=== PATIENT | male | born 1970 | race Caucasian/White ===

== ENCOUNTER 2020-01-11 21:33 | Observation (INO) | payer BC, MEDICARE, SELFPAY ==
[2020-01-11 21:46] VITALS: BP 126/69; PULSE 91; RESP 16; TEMP 36.8; O2SAT 95; BMI 35.1
--- NOTE | 2020-01-11 21:51 | ECG_ITS ---
APPROVED REPORT Exam: Resting ECG HR:94 bpm ECG Measurements Heart Rate 94 AXES WV 132 P 19 QRSd 102 QRS 7 QT 338 T 21 QTc 422 <Conclusion> Normal sinus rhythm Normal ECG Electronically signed by : Emre Pearl, 01/15/2020 08:11:02
[2020-01-11 22:00] VITALS: BP 112/54; PULSE 88; RESP 16; O2SAT 93
[2020-01-11 22:06] LABS: POC Glucose,Bedside 134 (70-110)
[2020-01-11 22:17] LABS: Chloride 97 mmol/L (98-107); Potassium 4.2 mmoL/L (3.5-5.1); Sodium 135 mmol/L (136-145)
[2020-01-11 22:19] LABS: Alanine Aminotransferase 22 U/L (12-78); Aspartate Amino Transferase 20 U/L (17-59); Blood Urea Nitrogen 35 mg/dl (9-20); Creatinine Clearance Estimated 32 mL/min (50-200); Estimated Glomerular Filt Rate 14 ml/min (>60); GFR (African American) 17 ML/MIN (>60)
[2020-01-11 22:20] LABS: Albumin/Globulin Ratio 1.4 (1.1-1.8); Alkaline Phosphatase 61 U/L (38-126); Anion Gap 17.2 mEq/L (5-15); Bilirubin,Total 0.5 mg/dl (0.2-1.3); Calcium 9.4 mg/dl (8.4-10.2); Carbon Dioxide 25 mmol/L (22.0-30.0); Globulin 2.9 g/dL (1.3-3.2); Glucose 139 mg/dl (74-100); Total Protein,Serum 6.9 g/dl (6.3-8.2)
[2020-01-11 22:22] LABS: Basophils # 0.1 K/mm3 (0-0.2); Basophils % 0.2 % (0.1-2.0); Eosinophils % 0.2 % (0.1-12.0); Hematocrit 42.8 % (42.0-52.0); Hemoglobin 14.1 g/dL (14.1-18.0); Lymphocytes # 2.9 K/mm3 (0.7-4.5); Lymphocytes % 12.6 % (10-50); Mean Corpuscular HGB Conc 33.1 g/dL (31.8-35.4); Mean Corpuscular Hemoglobin 29.7 pg (27.0-31.2); Mean Corpuscular Volume 89.9 fl (80-94); Mean Platelet Volume 7.5 fl (7.4-10.4); Monocytes # 0.8 K/mm3 (0.1-1.0); Monocytes % 3.7 % (1.7-9.3); Neutrophils # 19.1 K/mm3 (1.8-7.8); Neutrophils % 83.3 % (37.0-80.0); Platelet Count 319 K/mm3 (142-424); Red Blood Count 4.76 M/mm3 (4.60-6.20); Red Cell Distribution Width 13.2 % (11.5-17.5); White Blood Count 22.9 K/mm3 (4.8-10.8)
--- NOTE | 2020-01-11 22:26 | CT_ITS ---
PROCEDURE: CT HEAD/BRAIN WO CON CLINICAL INDICATION: weakness Walking difficulty, weakness, uncontrollable motion of arms and legs with weakness COMPARISON: No exams were available for comparison TECHNIQUE: Axial images obtained. All CT scans at the facility use one or more dose reduction, viz: automated exposure control, ma/kV adjustment per patient size (including targeted exams where dose is matched to indication, i.e. head), or iterative reconstruction technique. FINDINGS: No midline shift, mass effect, intracranial hemorrhage, hydrocephalus, or extra-axial fluid collection is evident.. The calvarium has an unremarkable appearance. No mastoid effusion. Mild mucosal thickening ethmoid sinuses and left maxillary sinus with possible small retention cyst in the left maxillary sinus. IMPRESSION: No acute intracranial finding Dictated by: Adeel Rodas MD 01/12/2020 06:28 Electronically signed by Adeel Rodas MD in [place] 01/12/2020 06:28
[2020-01-11 22:30] VITALS: BP 116/57; PULSE 90; RESP 16; O2SAT 94
[2020-01-11 22:53] LABS: Acetaminophen < 10 ug/ml (10-30); Salicylate < 1.0 mg/dL (2.0-20.0)
[2020-01-11 22:54] LABS: MANUAL DIFFERENTIAL MANUAL DIFFERENTIAL (MANUAL DIFF)
[2020-01-11 23:00] VITALS: BP 117/71; PULSE 96; RESP 16; O2SAT 98
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
--- NOTE | 2020-01-11 23:02 | HMH.EDAMS ---
ED Disposition Clinical Impression: Acute delirium, Obesity (BMI 30-39.9) Renal failure, acute Qualifiers: Acute renal failure type: unspecified Qualified Code(s): N17.9 - Acute kidney failure, unspecified Leukocytosis (leucocytosis) Qualifiers: Leukocytosis type: unspecified Qualified Code(s): D72.829 - Elevated white blood cell count, unspecified Disposition: Admitted as Observation Condition on Discharge: Good - Critical Care Critical Care Time: No Attestation: On 01/11/20, the high probability of a clinically significant, sudden or life threatening deterioration of the following system(s) required my full and direct attention, intervention and personal management. The time I documented below is in addition to time spent performing reported procedures but includes the following listed in this critical care notation. Medical Decision Making - Medical Records Medical records reviewed: Yes: I reviewed the patient's medical records. - Conrad Inquiry Pt receiving controlled substance: No Vital Signs: 01/11/20 21:46 01/11/20 22:00 01/11/20 22:30 Temperature 98.3 F Temperature Source Oral Pulse Rate [Right Brachial] 91 H 88 90 Respiratory Rate 16 16 16 Blood Pressure [Right Arm] 126/69 112/54 L 116/57 L Blood Pressure Mean [Right Arm] 88 73 76 Blood Pressure Source [Right Arm] Automatic Cuff Automatic Cuff Automatic Cuff Blood Pressure Position [Right Arm] Sitting Supine Supine 02 Sat by Pulse Oximetry 95 93 L 94 L Oxygen Delivery Method Room Air Room Air Room Air 01/11/20 23:00 Temperature Temperature Source Pulse Rate [Right Brachial] 96 H Respiratory Rate 16 Blood Pressure [Right Arm] 117/71 Blood Pressure Mean [Right Arm] 86 Blood Pressure Source [Right Arm] Automatic Cuff Blood Pressure Position [Right Arm] Sitting 02 Sat by Pulse Oximetry 98 Oxygen Delivery Method Room Air - Lab Data Lab results reviewed: Yes: I reviewed the patient's lab results. Lab Results 01/11/20 21:48: POC Glucose 134 H 01/11/20 22:00: WBC 22.9 H*, RBC 4.76, Hgb 14.1, Hct 42.8, MCV 89.9, MCH 29.7, MCHC 33.1, RDW 13.2, Plt Count 319, MPV 7.5, Neut % (Auto) 83.3 H, Lymph % (Auto) 12.6, [place] % (Auto) 3.7, Eos % (Auto) 0.2, Baso % (Auto) 0.2, Neut # (Auto) 19.1 H, Lymph # (Auto) 2.9, [place] # (Auto) 0.8, Eos # (Auto) 0.0, Baso # (Auto) 0.1, Total Counted 100, Neutrophils % (Manual) 81 H, Lymphocytes % (Manual) 15, Monocytes % (Manual) 4, Platelet Estimate Normal, RBC Morphology Normal 01/11/20 22:00: Sodium 135 L, Potassium 4.2, Chloride 97 L, Carbon Dioxide 25, Anion Gap 17.2 H, BUN 35 H, Creatinine 4.40 H, Estimated Creat Clear 32, Estimated GFR 14 L*, Est GFR ( Amer) 17 L*, Glucose 139 H, Calcium 9.4, Total Bilirubin 0.5, AST 20, ALT 22, Alkaline Phosphatase 61, Total Protein 6.9, Albumin 4.0, Globulin 2.9, Albumin/Globulin Ratio 1.4, Salicylates < 1.0 L, Acetaminophen < 10 L 01/11/20 22:00: Plasma/Serum Alcohol < 10 01/11/20 22:00: C-Reactive Protein 123.1 H Result diagrams: 01/11/20 22:00 01/11/20 22:00 Orders (Tests/Meds): ED MEDICATIONS Generic Name Dose Route Start Last Admin Trade Name Freq PRN Reason Stop Dose Admin Sodium Chloride 1,000 mls @ 999 mls/hr 01/11/20 23:00 01/11/20 23:00 Sod Chlor 0.9% 1000ml Bag IV 01/12/20 00:00 999 mls/hr .Q1H1M NOL[place] Administration Sodium Chloride 1,000 mls @ 999 mls/hr 01/11/20 22:00 Sod Chlor 0.9% 1000ml Bag IV 01/11/20 23:00 .Q1H1M NOL[place] Discontinued Medications Generic Name Dose Route Start Last Admin Trade Name Freq PRN Reason Stop Dose Admin Oxycodone/Acetaminophen 1 each 01/11/20 23:45 Percocet 7.5/325mg Tablet PO 01/11/20 23:46 ONCE ONE ORDERS Category Date Time Status CT head/brain wo con Stat Cat Scan 01/11/20 22:26 Taken Drug Screen,Urine Stat Lab 01/11/20 22:04 Ordered Erythrocyte Sedimentation Rate Stat Lab 01/11/20 22:00 Received Lactic Acid Stat Lab 01/11/20 23:36 Ordered Urinalysis and Micro
[2020-01-11 23:13] LABS: Lymphocytes % 15 % (10-50); Monocytes % 4 % (2-9); Neutrophils % 81 % (42-76); Total Cells Counted 100
[2020-01-11 23:14] LABS: Platelet Estimate Normal; RBC Morphology Normal
--- NOTE | 2020-01-11 23:15 | PC.NURSE ---
Page out for Dr. Govea at this time
--- NOTE | 2020-01-11 23:23 | PC.NURSE ---
ON PHONE WITH DR MAN
[2020-01-11 23:32] LABS: Ethyl Alcohol < 10 mg/dl (0-10)
--- NOTE | 2020-01-11 23:37 | PC.NURSE ---
NOW AT BEDSIDE
[2020-01-11 23:40] LABS: C-Reactive Protein 123.1 mg/L (0-4)
--- NOTE | 2020-01-11 23:50 | PC.NURSE ---
PT WITH AT BEDSIDE. DISCUSSED CARE AND PLAN OF CARE WITH DR MCCARTY. UNDERSTANDS NO GABAPENTIN TONIGHT. UNDERSTANDS RENAL FUNCTION SHOULD IMPROVE WITH HYDRATION AND NO GABAPENTIN. PATIENT CONTINUES TO MAKE THE STATEMENT I'LL JUST LEAVE TO ANYTHING THAT HE DEEMS NOT GETTING A SATISFACTORY ANSWER. REMINDING PATIENT THAT THIS IS A SERIOUS MATTER DOESN'T SEEM TO BE GETTING THROUGH. WILL ADVISE RECEIVING NURSE.
[2020-01-12 00:01] LABS: Erythrocyte Sedimentation Rate 39 mm/hr (0-20)
[2020-01-12 00:04] VITALS: BP 117/73; PULSE 93; RESP 16; TEMP 36.8; O2SAT 96
[2020-01-12 00:19] LABS: Lactic Acid 0.8 mmol/L (0.7-2.1)
--- NOTE | 2020-01-12 00:20 | PC.NURSE ---
patient up to floor via wheelchair.
[2020-01-12 00:39] VITALS: BP 144/84; PULSE 92; RESP 20; TEMP 36.9; O2SAT 92; BMI 36.3
[2020-01-12 04:00] VITALS: BP 162/88; PULSE 105; RESP 20; TEMP 37.3; O2SAT 93
[2020-01-12 04:47] LABS: Microscopic, Urine URINE MICROSCOPIC (MICROSCOPIC)
[2020-01-12 04:50] LABS: Appearance,Urine CLEAR (Clear); Bilirubin,Urine Negative (Negative); Blood, Urine 1+ (Negative); Color,Urine YELLOW (Yellow); Glucose,Urine (UA) Negative (Negative); Ketones,Urine Negative (Negative); Leukocyte Esterase,Urine TRACE (Negative); Nitrate,Urine POSITIVE (Negative); Protein,Urine 1+ (Negative); Specific Gravity, Urine >= 1.030 (1.005-1.030); Urobilinogen,Urine 0.2 EU/dl (0.2)
[2020-01-12 04:53] VITALS: BMI 36.4
[2020-01-12 05:02] LABS: Barbiturates Screen,Urine Negative ng/ml (<200)
[2020-01-12 05:03] LABS: Amphetamine/Metha Screen,Urine Negative ng/ml (<1000); Benzodiazepines Screen,Urine Negative ng/ml (<200)
[2020-01-12 05:04] LABS: Methadone Screen,Urine Negative ng/ml (<300)
[2020-01-12 05:05] LABS: Cannabinoid Screen,Urine Negative ng/ml (<50); Cocaine Screen,Urine Negative ng/ml (<300); WBC,Urine Occasional #/hpf (0-3)
[2020-01-12 05:06] LABS: Bacteria,Urine Trace /lpf; Opiate Screen,Urine Negative ng/ml (<300)
[2020-01-12 05:07] LABS: Phencyclidine Screen,Urine Negative ng/ml (<25)
--- NOTE | 2020-01-12 05:56 | PC.NURSE ---
PT A&OX4. TOLERATING RA WELL THIS SHIFT. PT HAS BEEN EXTREMELY ANXIOUS AND AGITATED T/O SHIFT. PT HAS C/O PAIN AND MUSCLE SPASMS T/O SHIFT. PT FAMILY HAS REMAINED AT BEDSIDE. PT STATED THAT IF HE WAS NOT ABLE TO GET HIS MEDICATIONS FROM THE MD, HE WOULD JUST HAVE HIS FAMILY BRING THEM IN TO HIM. THIS NURSE EXPLAINED OUR POLICIES TO THE PT. PT FAMILY CONTINUED TO GO IN AND OUT OF ROOM. PT CONTINUED BEING ANXIOUS AND C/O PAIN T/O NIGHT. PT NOW AT BEDSIDE. PT ABLE TO WALK INDEPENDENTLY TO . VSS WILL CONTINUE TO MONITOR.
[2020-01-12 07:06] LABS: Basophils % 0.2 % (0.1-2.0); Eosinophils # 0.1 K/mm3 (0.0-0.4); Eosinophils % 0.3 % (0.1-12.0); Hematocrit 38.7 % (42.0-52.0); Lymphocytes # 1.6 K/mm3 (0.7-4.5); Lymphocytes % 9.6 % (10-50); Mean Corpuscular HGB Conc 33.7 g/dL (31.8-35.4); Mean Corpuscular Hemoglobin 30.4 pg (27.0-31.2); Mean Corpuscular Volume 90.5 fl (80-94); Mean Platelet Volume 7.5 fl (7.4-10.4); Monocytes # 0.4 K/mm3 (0.1-1.0); Monocytes % 2.2 % (1.7-9.3); Neutrophils # 14.7 K/mm3 (1.8-7.8); Neutrophils % 87.6 % (37.0-80.0); Platelet Count 252 K/mm3 (142-424); Red Blood Count 4.28 M/mm3 (4.60-6.20); Red Cell Distribution Width 13.1 % (11.5-17.5); White Blood Count 16.8 K/mm3 (4.8-10.8)
[2020-01-12 07:16] LABS: Chloride 99 mmol/L (98-107); Sodium 132 mmol/L (136-145)
[2020-01-12 07:17] LABS: MANUAL DIFFERENTIAL MANUAL DIFFERENTIAL (MANUAL DIFF); Potassium 3.6 mmoL/L (3.5-5.1)
[2020-01-12 07:19] LABS: Blood Urea Nitrogen 29 mg/dl (9-20); Creatinine Clearance Estimated 77 mL/min (50-200); Estimated Glomerular Filt Rate 38 ml/min (>60); GFR (African American) 45 ML/MIN (>60)
[2020-01-12 07:20] LABS: Anion Gap 12.6 mEq/L (5-15); Calcium 8.9 mg/dl (8.4-10.2); Carbon Dioxide 24 mmol/L (22.0-30.0); Glucose 198 mg/dl (74-100); Magnesium 1.7 mg/dl (1.6-2.3)
--- NOTE | 2020-01-12 07:31 | P.CONPHA_ITS ---
[facility] Pharmacy VTE Monitoring - Patient Demographics Admission date: 01/12/20 Report Date: 01/12/20 Time: 07:31 Allergies/Adverse Reactions: Patient Allergies No Known Allergies Allergy (Verified 01/11/20 21:52) Height: 1.8 m Weight: 118.047 kg Patient Problems: Current Active Problems Acute delirium (Acute) Renal failure, acute (Acute) Obesity (BMI 30-39.9) (Acute) Leukocytosis (leucocytosis) (Acute) - VTE Risk Labs: VTE Related Lab Results Hgb 13.0 g/dL (14.1-18.0) L 01/12/20 06:30 Hct 38.7 % (42.0-52.0) L 01/12/20 06:30 Plt Count 252 K/mm3 (142-424) 01/12/20 06:30 BUN 29 mg/dl (9-20) H 01/12/20 06:30 Creatinine 1.90 mg/dl (0.66-1.25) H D 01/12/20 06:30 Estimated Creat Clear 77 mL/min (50-200) 01/12/20 06:30 VTE Score: 3 Clinical Trial Participant: No - Prophylaxis VTE Prophylaxis Ordered?: Yes Types of VTE Prophylaxis: TEDS Knee High
[2020-01-12 08:00] VITALS: BP 143/85; PULSE 111; RESP 20; TEMP 37.4; O2SAT 94
--- NOTE | 2020-01-12 08:08 | HMH.HPDC ---
General - General Admission date:: 01/12/20 Discharge date: 01/12/20 *Admission Date: 01/12/20 *Chief complaint: Mental status change/lethargy *History of present illness: 49-year-old white male afflicted with multiple psychiatric and neurologic problems including severe neuropathy, chronic muscle spasms, chronic lower extremity restless leg issues and severe depression with probable bipolar component who is on a host of muscle relaxers, antipsychotic and antidepressants, who presented to the emergency department with lethargy and mental status confusion. He had seen his physician earlier in the day of admission who would recommend titrating down his dosage of medication but the family brought him into the emergency department late last night with lethargy and confusion. In the emergency department he was found to be lethargic, head CT was unremarkable, labs were unremarkable except for leukocytosis, and he was found to have acute kidney injury with creatinine of 4.6. Admitted for IV fluids and further diagnostic testing. The diagnosis of gabapentin toxicity was entertained as patient is on a high dose of gabapentin and has symptoms consistent with this. [facility] History I have reviewed the patient's past medical history: Yes *Have you ever received a pneumonia vaccine?: No *Have you received a flu vaccine this season?: No Comment:: Patient has severe depression, bipolar disease, chronic lower extremity pain, restless leg, chronic neuropathy. - *Social History Last grade of school completed: Some college Alcohol Intake: never *Occupational Status:: disabled *Travel in the last 8 weeks: None Family Hx:: No significant family history Review of Systems - Review of Systems Review of systems:: pertinent systems reviewed and negative unless documented below This morning patient is much more awake and alert. Is very difficult to obtain a history from patient or a review of systems because patient has pressured speech and continuously interrupts any conversations with concerns about his medications needing restarted, and needing his muscle relaxers, and demonstrating that his leg shakes when he lifts it up. - *Neurologic Reports abnormal walking, Reports tingling/numbness/burning sensations, Reports weakness, Denies localized weakness, Denies headache(s), Denies sensory deficit Exam Vital signs and Labs for Last 24 Hours: Temp Pulse Resp BP Pulse Ox 99.2 F 105 H 20 162/88 H 93 L 01/12/20 04:00 01/12/20 04:00 01/12/20 04:00 01/12/20 04:00 01/12/20 04:00 Laboratory Results - last 24 hr 01/11/20 21:48: POC Glucose 134 H 01/11/20 22:00: WBC 22.9 H*, RBC 4.76, Hgb 14.1, Hct 42.8, MCV 89.9, MCH 29.7, MCHC 33.1, RDW 13.2, Plt Count 319, MPV 7.5, Neut % (Auto) 83.3 H, Lymph % (Auto) 12.6, [place] % (Auto) 3.7, Eos % (Auto) 0.2, Baso % (Auto) 0.2, Neut # (Auto) 19.1 H, Lymph # (Auto) 2.9, [place] # (Auto) 0.8, Eos # (Auto) 0.0, Baso # (Auto) 0.1, Total Counted 100, Neutrophils % (Manual) 81 H, Lymphocytes % (Manual) 15, Monocytes % (Manual) 4, Platelet Estimate Normal, RBC Morphology Normal 01/11/20 22:00: Sodium 135 L, Potassium 4.2, Chloride 97 L, Carbon Dioxide 25, Anion Gap 17.2 H, BUN 35 H, Creatinine 4.40 H, Estimated Creat Clear 32, Estimated GFR 14 L*, Est GFR ( Amer) 17 L*, Glucose 139 H, Calcium 9.4, Total Bilirubin 0.5, AST 20, ALT 22, Alkaline Phosphatase 61, Total Protein 6.9, Albumin 4.0, Globulin 2.9, Albumin/Globulin Ratio 1.4, Salicylates < 1.0 L, Acetaminophen < 10 L 01/11/20 22:00: Plasma/Serum Alcohol < 10 01/11/20 22:00: ESR 39 H 01/11/20 22:00: C-Reactive Protein 123.1 H 01/11/20 23:50: Lactate 0.8 01/12/20 04:41: Urine Color Yellow, Urine Appearance Clear, Urine pH 6.0, Ur Specific [place] >= 1.030, Urine Protein 1+, Urine Glucose (UA) Negative, Urine Ketones Negative, Urine Blood 1+, Urine Nitrate Positive, Urine Bilirubin Negative, Urine Urobilinogen 0.2, Ur Leukocyte Esterase Trace, Urine RBC 5-10, Urine WBC O
[2020-01-12 08:42] LABS: Lymphocytes % 8 % (10-50); Monocytes % 2 % (2-9); Neutrophils % 86 % (42-76); Total Cells Counted 100
[2020-01-12 08:43] LABS: Platelet Estimate Normal; RBC Morphology Normal
== END 2020-01-12 09:15 | disposition home or self-care (01) ==
LOC: ER 23:38 → 2ND 23:58
PROVIDERS: Admitting Provider Internal Medicine Adolescent Medicine; Emergency Provider Emergency Medicine; PCP Family Medicine; Visit Provider Internal Medicine Adolescent Medicine
DX: N17.9 Acute kidney failure, unspecified (principal); N39.0 Urinary tract infection, site not specified; G57.90 Unspecified mononeuropathy of unspecified lower limb; Z79.899 Other long term (current) drug therapy
CPT/HCPCS: 36415; 70450; 80048; 80053; 80305; 80329; 81001; 82962; 83605; 83735; 85007; 85025; 85651; 86140; 87040; 93005; 96365; 96366; 99284; G0378; J1956